=== PATIENT | female | born 1980 | race Caucasian/White ===

== ENCOUNTER 2016-07-30 17:40 | Emergency (ER) | payer SELFPAY ==
[2016-07-30 17:53] VITALS: BP 135/75; PULSE 60; TEMP 98.7; BMI 32.0
[2016-07-30] MEDS ORDERED: SODIUM CHLORIDE 1,000 ML IV STA (18:36)
--- NOTE | 2016-07-30 18:38 | PDOC ---
History of Present Illness - General Chief Complaint: Headache Stated Complaint: HEADACHE Time Seen by Provider: 07/30/16 17:56 History Source: [employer] Used (Tanisha [id number] ) Exam Limitations: Language Barrier - History of Present Illness Initial Comments: 07/30/16 18:35 35 yr female no medical history with c/o frequent headaches daily worse when "getting upset or yelling" for many months. Pt denies fever or chills, states today pt felt dizzy so she came to the ER. Pt denies chest pain or coughing no recent travel. Timing/Duration: reports: episodic Severity: Yes: moderate Associated Symptoms: reports: denies symptoms Past History - Past Medical History Allergies/Adverse Reactions: Allergies Allergy/AdvReac Type Severity Reaction Status Date / Time No Known Allergies Allergy Verified 07/30/16 17:50 Home Medications: Ambulatory Orders Amoxicillin/Potassium Clav [Augmentin 875-125 Tablet] 1 each PO BID #20 tablet 07/30/16 Naproxen [Naprosyn -] 500 mg PO BID PRN #28 tablet 07/30/16 Other medical history: DENIES. - Psycho/Social/Smoking Cessation Hx Suicidal Ideation: No Smoking History: Never smoked Neuro Specific PMHX - Complaint Specific PMHX Other Neuro History: headaches Review of Systems - Review of Systems Able to Perform ROS?: Yes Is the patient limited Citizen Of [place] proficient: Yes Constitutional: No: Symptoms Reported HEENTM: No: Symptoms Reported Respiratory: No: Symptoms reported Cardiac (ROS): No: Symptoms Reported ABD/GI: No: Symptoms Reported : No: Symptoms Reported Musculoskeletal: No: Symptoms Reported Integumentary: No: Symptoms Reported Neurological: Yes: See HPI *Physical Exam - Vital Signs Last Vital Signs Temp Pulse Resp BP Pulse Ox 98.7 F 60 19 135/75 98 07/30/16 17:50 07/30/16 17:50 07/30/16 17:50 07/30/16 17:50 07/30/16 17:50 - Physical Exam General Appearance: Yes: Nourished, Appropriately Dressed HEENT: positive: EOMI, IAN, Normal ENT Inspection, TMs Normal, Pharynx Normal Neck: positive: Supple. negative: Tender, Tender lateral, Tender midline Respiratory/Chest: positive: Lungs Clear, Normal Breath Sounds Cardiovascular: positive: Regular Rhythm, Regular Rate Gastrointestinal/Abdominal: positive: Normal Bowel Sounds, Soft Musculoskeletal: positive: Normal Inspection Extremity: positive: Normal Capillary Refill, Normal Inspection, Normal Range of Motion Integumentary: positive: Normal Color, Dry, Warm Neurologic: positive: Fully Oriented, Alert, Normal Mood/Affect, Normal Response , Motor Strength 5/5, Other (steady gait ) ED Treatment Course - LABORATORY CBC & Chemistry Diagram: 07/30/16 19:00 07/30/16 19:00 Medical Decision Making - Medical Decision Making 07/30/16 19:37 cc: headache pt has menses now headache comes and goes with when she gets mad or yells, pt states. denies head trauma no medical history 07/30/16 20:06 *DC/Admit/Observation/Transfer Diagnosis at time of Disposition: Headache Qualifiers: Headache type: new daily persistent Qualified Code(s): G44.52 - New daily persistent headache (NDPH) - Discharge Dispostion Disposition: HOME Condition at time of disposition: Good - Prescriptions Prescriptions: Amoxicillin/Potassium Clav [Augmentin 875-125 Tablet] 1 each PO BID #20 tablet Naproxen [Naprosyn -] 500 mg PO BID PRN #28 tablet PRN Reason: Headache - Referrals Referrals: Jaime Dave MD [Staff Physician] - Tejas Cuevas MD [Staff Physician] - - Patient Instructions Additional Instructions: you have sinusitus please take the antibiotics as prescribed take the naprosyn for headache as prescribed follow with the ENT doctor this week in 2-4 days please follow up with the neurologist call tomorrow to set up appointment for follow up if you continue to have headaches this week take naprosyn for headache as needed Return to ER for any worsening symptoms Usted tiene sinusitis por favor tome los antibiticos segn lo prescrito Michael el naprosyn para el dolor de davis segn lo prescrito Siga con el doctor ENT esta semana en 2-4 saul Por favor, siga con la llamada de neurlogo maana para establecer elli carito para el seguimiento si contina con mike de davis esta semana Michael naprosyn para el dolor de davis segn sea necesario Regreso a la roxana de emergencias por cualquier empeoramiento de los sntomas
[2016-07-30 18:42] LABS: URINE APPEARANCE CLEAR; URINE BILIRUBIN NEGATIVE (NEGATIVE); URINE COLOR LTYELLOW; URINE GLUCOSE (UA) NEGATIVE (NEGATIVE); URINE KETONE NEGATIVE (NEGATIVE); URINE LEUK ESTERASE NEGATIVE (NEGATIVE); URINE NITRITE NEGATIVE (NEGATIVE); URINE PROTEIN NEGATIVE (NEGATIVE); URINE UROBILINOGEN NEGATIVE E.U./dl (0.2-1.0)
[2016-07-30 18:49] LABS: URINE BLOOD 2+ (NEGATIVE)
[2016-07-30 18:53] LABS: URINE RBC 4 /hpf (0-3); URINE WBC 2 /hpf (3-5)
[2016-07-30 19:05] LABS: MCH 30.3 pg (25.7-33.7); MCHC 33.8 g/dl (32.0-36.0); MEAN CELL VOLUME 89.5 fl (80-96); MEAN PLT VOLUME 7.9 fl (7.5-11.1); PLATELET COUNT 282 K/MM3 (134-434); RDW 13.1 % (11.6-15.6); WHITE BLOOD COUNT 8.5 K/mm3 (4.0-10.0)
[2016-07-30] MEDS ORDERED: ACETAMINOPHEN 1000 MG/100 ML VIAL (NON FORMULARY) IVPB ONE (19:05)
[2016-07-30] MEDS ORDERED: ACETAMINOPHEN INJECTION 100 ML IVPB ONE (19:12)
[2016-07-30 19:38] LABS: ANION GAP 9 (8-16); BILIRUBIN,TOTAL 0.3 mg/dL (0.2-1.0); CALCIUM 8.8 mg/dL (8.5-10.1); CO2 27 mmol/L (21-32); CREATININE 0.7 mg/dL (0.55-1.02); GLUCOSE,RANDOM 107 mg/dL (74-106); SGOT/AST 28 U/L (15-37); SGPT/ALT 51 U/L (12-78); TOT PROT 7.8 g/dl (6.4-8.2)
[2016-07-30] MEDS ORDERED: MECLIZINE HCL 12.5 MG TABLET PO ONE (19:38)
[2016-07-30 19:39] LABS: ALK PHOS 105 U/L (45-117)
[2016-07-30] MEDS ORDERED: MECLIZINE HCL 12.5 MG TABLET ONE (19:48)
== END 2016-07-30 20:41 | disposition home or self-care (01) ==
LOC: JERFT 17:40
PROC: 3E0337Z Introduction of Electrolytic and Water Balance Substance into Peripheral Vein, Percutaneous Approach (ICD-10-PCS; principal; 2016-07-30)
PROC: 3E033NZ Introduction of Analgesics, Hypnotics, Sedatives into Peripheral Vein, Percutaneous Approach (ICD-10-PCS; 2016-07-30)
DX: G44.52 New daily persistent headache (NDPH) (principal)
CPT/HCPCS: 36415; 70450-TC; 80053; 81003; 81015; 84703; 85027; 85651; 86618; 99281-25

== ENCOUNTER 2016-09-05 13:57 | Emergency (ER) | payer SELFPAY ==
[2016-09-05 14:02] VITALS: BP 132/55; PULSE 57; TEMP 98.3; BMI 31.2
--- NOTE | 2016-09-05 15:34 | PDOC ---
History of Present Illness - General History Source: Patient Exam Limitations: No Limitations - History of Present Illness Travel History: No Initial Comments: 09/05/16 15:29 She came to emergency department for complaints of abdominal pain that started yesterday and progressively worsened today. Last menstrual period was July 19, and states 5 times with 4 live births. States had some minimal spotting today not bright red, and has not noted any tissue-like substance. Denies fever, nausea vomiting, no problems with urine or bowels. Has had 1 appointment but no ultrasound. 09/05/16 15:32 09/05/16 15:33 Quality: reports: mild Abdominal Pain Onset Location: reports: suprapubic, generalized abdomen Pain Radiation: reports: no radiation <Abigail Hayes - Last Filed: 09/05/16 20:12> <Liyah Campbell - Last Filed: 09/05/16 20:43> - General Chief Complaint: Vaginal Bleeding Stated Complaint: 8 WKS BLEEDING Time Seen by Provider: 09/05/16 15:19 Past History - Travel Traveled outside of the country in the last 30 days: No Close contact w/someone who was outside of country & ill: No - Past Medical History Other medical history: NONE - Psycho/Social/Smoking Cessation Hx Anxiety: No Suicidal Ideation: No Smoking History: Never smoked Substance Use Type: None <Abigail Hayes - Last Filed: 09/05/16 20:12> <Liyah Campbell - Last Filed: 09/05/16 20:43> - Past Medical History Allergies/Adverse Reactions: Allergies Allergy/AdvReac Type Severity Reaction Status Date / Time No Known Allergies Allergy Verified 09/05/16 14:02 Home Medications: Ambulatory Orders Amoxicillin/Potassium Clav [Augmentin 875-125 Tablet] 1 each PO BID #20 tablet 07/30/16 Naproxen [Naprosyn -] 500 mg PO BID PRN #28 tablet 07/30/16 Review of Systems - Review of Systems Able to Perform ROS?: Yes Is the patient limited [place] proficient: Yes Constitutional: Yes: Symptoms Reported, See HPI, Malaise HEENTM: Yes: See HPI. No: Symptoms Reported Respiratory: Yes: See HPI ABD/GI: Yes: Symptoms Reported, See HPI. No: Nausea, Rectal Bleeding, Vomiting : Yes: See HPI. No: Symptoms Reported Integumentary: Yes: Symptoms Reported All Other Systems: Reviewed and Negative <Abigail Hayes - Last Filed: 09/05/16 20:12> *Physical Exam - Vital Signs Last Vital Signs Temp Pulse Resp BP Pulse Ox 98.3 F 57 L 20 132/55 99 09/05/16 14:00 09/05/16 14:00 09/05/16 14:00 09/05/16 14:00 09/05/16 14:00 - Physical Exam General Appearance: Yes: Nourished, Appropriately Dressed, Apparent Distress, Mild Distress HEENT: positive: IAN, Normal ENT Inspection, TMs Normal, Pharynx Normal Neck: positive: Supple. negative: Tender Respiratory/Chest: positive: Lungs Clear, Normal Breath Sounds. negative: Chest Tender Cardiovascular: positive: Regular Rhythm, Regular Rate Gastrointestinal/Abdominal: positive: Normal Bowel Sounds, Tender (mild suprapubic tenderness), Soft Musculoskeletal: positive: Normal Inspection Extremity: positive: Normal Capillary Refill, Normal Inspection Integumentary: positive: Normal Color, Dry, Warm, Pale Neurologic: positive: ethical hacker II-XII NML intact, Fully Oriented, Alert, Normal Mood/ Affect, Normal Response, Motor Strength 5/5 <Abigail Hayes - Last Filed: 09/05/16 20:12> - Vital Signs Last Vital Signs Temp Pulse Resp BP Pulse Ox 98.3 F 57 L 20 132/55 99 09/05/16 14:00 09/05/16 14:00 09/05/16 14:00 09/05/16 14:00 09/05/16 14:00 <Liyah Campbell - Last Filed: 09/05/16 20:43> ED Treatment Course - LABORATORY CBC & Chemistry Diagram: 09/05/16 18:19 - RADIOLOGY Radiology Studies Ordered: Category Date Time Status <14WKS US [US] Stat Ultrasound 09/05/16 15:24 Ordered <Abigail Hayes - Last Filed: 09/05/16 20:12> - LABORATORY CBC & Chemistry Diagram: 09/05/16 18:19 - ADDITIONAL ORDERS Additional order review: Laboratory Results 09/05/16 09/05/16 15:36 15:36 Beta HCG, Quant 198.2 Urine Color Ltyellow Urine Appearance Clear Urine pH 6.0 Urine Protein Negative Urine Glucose (UA) Negative Urine Ketones Negative Urine Blood 3+ H Urine Nitrite Negative Urine Bilirubin Negative Urine Urobilinogen Negative Ur Leukocyte Esterase Trace H Urine RBC 2 Urine WBC 10 Ur Epithelial Cells Rare Urine Bacteria Rare 09/05/16 09/05/16 18:19 15:36 RBC 4.37 4.42 MCV 89.2 90.5 MCHC 33.7 33.2 RDW 13.0 13.1 MPV 7.9 8.2 Neutrophils % 60.5 62.1 Lymphocytes % 31.1 28.0 Monocytes % 6.4 7.8 Eosinophils % 1.2 1.7 Basophils % 0.8 0.4 <Liyah Campbell - Last Filed: 09/05/16 20:43> Progress Note - Progress Note Progress Note: Early with abdominal pain and spotting. We will obtain labs and ultrasound <Abigail Hayes - Last Filed: 09/05/16 20:12> Medical Decision Making - Medical Decision Making 09/05/16 19:12 turn from ultrasound, reveals no intrauterine gestational sac, and beta-hCG that is low less than 200. Patient understands need for return to emergency Department in 2 days for repeat blood work. His pending type and crossmatch to rule out Rh- problems. His mother is positive no further observation tonight needed. Case is turned over to Joey Lewis NP for remainder of evaluation and disposition. <Abigail Hayes - Last Filed: 09/05/16 20:12> *DC/Admit/Observation/Transfer - Discharge Dispostion Admit: No <Abigail Hayes - Last Filed: 09/05/16 20:12> - Discharge Dispostion Admit: No <Liyah Campbell - Last Filed: 09/05/16 20:43> Diagnosis at time of Disposition: Threatened in first trimester - Referrals Referrals: Rae Weaver MD [Staff Physician] - - Patient Instructions Printed Discharge Instructions: DI for Threatened Additional Instructions: Rest, drink lots of fluids: Teas, water, soups Samia iggy, carbonated beverages for the bubbles May try peppermint teas Continue [id number] medications for symptomatic relief Tylenol for fever and pain Return to this emergency Department in 2 days for repeat blood testing to check the beta hCG. Your initial reading was 198 Followup with private physician in one to 2 days as needed Return to emergency department for worsened symptoms, fevers, dehydration Print Language: SLOVAK - Post Discharge Activity Work/School Note: Back to Work
[2016-09-05 16:56] LABS: URINE APPEARANCE CLEAR; URINE BILIRUBIN NEGATIVE (NEGATIVE); URINE COLOR LTYELLOW; URINE GLUCOSE (UA) NEGATIVE (NEGATIVE); URINE KETONE NEGATIVE (NEGATIVE); URINE NITRITE NEGATIVE (NEGATIVE); URINE PROTEIN NEGATIVE (NEGATIVE); URINE UROBILINOGEN NEGATIVE E.U./dl (0.2-1.0)
[2016-09-05 17:01] LABS: BASOPHIL 0.4 % (0-2.0); EOSINOPHIL 1.7 % (0-4.5); MCH 30.1 pg (25.7-33.7); MCHC 33.2 g/dl (32.0-36.0); MEAN CELL VOLUME 90.5 fl (80-96); MEAN PLT VOLUME 8.2 fl (7.5-11.1); NEUTROPHILS 62.1 % (42.8-82.8); PLATELET COUNT 294 K/MM3 (134-434); RDW 13.1 % (11.6-15.6); WHITE BLOOD COUNT 8.5 K/mm3 (4.0-10.0)
[2016-09-05 17:06] LABS: URINE BLOOD 3+ (NEGATIVE); URINE LEUK ESTERASE TRACE (NEGATIVE)
[2016-09-05 17:14] LABS: URINE BACTERIA RARE /hpf (NONE SEEN); URINE RBC 2 /hpf (0-3); URINE WBC 10 /hpf (3-5)
[2016-09-05 18:33] LABS: BASOPHIL 0.8 % (0-2.0); EOSINOPHIL 1.2 % (0-4.5); MCHC 33.7 g/dl (32.0-36.0); MEAN CELL VOLUME 89.2 fl (80-96); MEAN PLT VOLUME 7.9 fl (7.5-11.1); NEUTROPHILS 60.5 % (42.8-82.8); PLATELET COUNT 283 K/MM3 (134-434); WHITE BLOOD COUNT 8.5 K/mm3 (4.0-10.0)
== END 2016-09-05 20:49 | disposition home or self-care (01) ==
LOC: JER 13:57
DX: O20.0 Threatened abortion (principal); Z3A.01 Less than 8 weeks gestation of pregnancy
CPT/HCPCS: 36415; 76801-TC; 81003; 81015; 84702; 85025; 86850; 86900; 86901; 99282-25

== ENCOUNTER 2018-03-24 12:59 | Emergency (ER) | payer OTHER ==
[2018-03-24 13:10] VITALS: BP 134/71; PULSE 69; TEMP 98; BMI 31.2
--- NOTE | 2018-03-24 13:52 | PDOC ---
History of Present Illness - General Chief Complaint: Vaginal Bleeding Stated Complaint: VAGINAL BLEEDING/12 WKS Time Seen by Provider: 03/24/18 13:50 - History of Present Illness Initial Comments: 37yo A0 currently 12 weeks complaining of vaginal bleeding that started last night. She states that she has seen her [employer] doctor during this but does not know who the doctor is. She has an ultrasound scheduled for April 04. Previous pregnancies resulted in uncomplicated courses, except for one premature delivery. Patient states she has not passed any clots or tissue. Endorsing some minor abdominal cramping. Denies nausea or vomiting. Last bowel movement was a normal formed brown stool yesterday. Denies any trauma or any urinary symptoms. No fever or chills. Past History - Past Medical History Allergies/Adverse Reactions: Allergies Allergy/AdvReac Type Severity Reaction Status Date / Time No Known Allergies Allergy Verified 03/26/18 13:38 Home Medications: Ambulatory Orders Amoxicillin/Potassium Clav [Augmentin 875-125 Tablet] 1 each PO BID #20 tablet 07/30/16 Naproxen [Naprosyn -] 500 mg PO BID PRN #28 tablet 07/30/16 COPD: No - Reproductive History (#): 5 Para: 4 Therapeutic (s) & number: No Spontaneous : 0 - Suicide/Smoking/Psychosocial Hx Smoking History: Never smoked Have you smoked in the past 12 months: No Information on smoking cessation initiated: No Hx Alcohol Use: No Drug/Substance Use Hx: No Substance Use Type: None Review of Systems - Review of Systems Comments:: Constitutional: no fever, no chills HEENT: no throat pain, no dysphagia Cardiovascular: no chest pain, no palpitations Respiratory: no cough, no shortness of breath Gastrointestinal: +abdominal pain, no nausea, no vomiting Genitourinary: +vaginal bleeding, no dysuria Musculoskeletal: no myalgia, no arthralgia Skin: no rash, no itching Neurologic: no headache, no dizziness *Physical Exam - Vital Signs Last Vital Signs Temp Pulse Resp BP Pulse Ox 98 F 69 18 134/71 97 03/24/18 13:07 03/24/18 13:07 03/24/18 13:07 03/24/18 13:07 03/24/18 13:07 - Physical Exam Comments: General: Awake, alert, and fully oriented, in no acute distress Head: No signs of trauma Eyes: EOMI, sclera anicteric ENT: Moist mucus membranes Neck: Normal ROM, supple Lungs: Lungs clear, Normal breath sounds Cardio: Regular rhythm, S1 and S2 present Abdomen: Soft, nontender. No guarding, no rebound, no masses Extremities: Normal range of motion, Distal pulses present SKIN: Warm, Dry, normal turgor Neurologic: Cranial nerves II through XII grossly intact. Normal speech Pelvic exam: External genitalia without erythema, exudate or discharge. Vaginal vault is with discharge. Cervix is of normal color without lesion. The os is open. Uterus is noted to be of appropriate size. No cervical motion tenderness is seen. No masses are palpated. The adnexa are without masses or tenderness. Moderate Sedation - Procedure Monitoring Vital Signs: Procedure Monitoring Vital Signs Temperature 98 F 03/24/18 13:07 Pulse Rate 69 03/24/18 13:07 Respiratory Rate 18 03/24/18 13:07 Blood Pressure 134/71 03/24/18 13:07 O2 Sat by Pulse Oximetry (%) 97 03/24/18 13:07 ED Treatment Course - LABORATORY CBC & Chemistry Diagram: 03/24/18 13:56 03/24/18 14:09 Medical Decision Making - Medical Decision Making 37yo A0 currently 12 weeks complaining of vaginal bleeding that started last night. -DDX includes but not limited to : missed, inevitable, incomplete; subchorionic hemorrhage -Labs: no leukoctyosis or anemia, UA negative for infection, unremarkable electrolyte panel -B-hcg is 5762 which is less than expected for stated gestational age (no baseline value) -Patient is Rh+ -TVUS: "Endometrial fluid and thickening without evidence of a viable intrauterine gestation. 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 Ultrasound imaging shows you have had a miscarriage. Follow-up with your manager project this week. Your workup is not complete until you do so. Your beta-HCG today was 5762.7 Return to the Emergency Department if you experience: -heavy bleeding (more than two pads per hour for two hours) -severe pain -lightheadedness -shortness of breath -high fever -any other concerning symptoms === Usted fue atendido en el [facility] por manchado vaginal. Las imgenes de ultrasonido muestran que pritchett tenido un aborto espontneo. Peter un seguimiento con vicente ob / gineclogo esta semana. Vicente preparacin no est completa hasta que lo peter. Vicente beta-HCG hoy fue 5762.7 Regrese al [facility] si experimenta: -sangrado abundante (ms de dos compresas por hora rosy dos horas) -dolor tremaine aturdimiento -cortitud de aliento -fiebre modesta - Cualquier otro sntoma relativo. - Post Discharge Activity
[2018-03-24 14:28] LABS: BASO % 0.3 % (0-2.0); EOS % 1.7 % (0-4.5); HEMATOCRIT 38.3 % (32.4-45.2); HEMOGLOBIN 13.8 GM/dL (10.7-15.3); INR 1.11 (0.83-1.09); LYMPH % 29.3 % (8-40); MCHC 36.1 g/dl (32.0-36.0); MEAN CELL VOLUME 88.6 fl (80-96); MEAN PLT VOLUME 8.1 fl (7.5-11.1); MONO % 7.2 % (3.8-10.2); NEUT % 61.5 % (42.8-82.8); PLATELET COUNT 271 K/MM3 (134-434); PROTHROMBIN TIME (PATIENT) 13.1 SEC (9.7-13.0); RBC 4.33 M/mm3 (3.60-5.2); WHITE BLOOD COUNT 8.8 K/mm3 (4.0-10.0)
[2018-03-24 14:31] LABS: ACTIVATED PTT 28.5 SECONDS (25.2-36.5)
[2018-03-24 14:36] LABS: ALK PHOS 85 U/L (45-117); ANION GAP 9 MMOL/L (8-16); BILIRUBIN,TOTAL 0.6 mg/dL (0.2-1); BLOOD UREA NITROGEN 10 mg/dL (7-18); CALCIUM 8.7 mg/dL (8.5-10.1); CHLORIDE 106 mmol/L (98-107); CO2 23 mmol/L (21-32); CREATININE 0.5 mg/dL (0.55-1.3); GLUCOSE,RANDOM 100 mg/dL (74-106); POTASSIUM 3.6 mmol/L (3.5-5.1); SGOT/AST 15 U/L (15-37); SGPT/ALT 23 U/L (13-61); SODIUM 139 mmol/L (136-145); TOT PROT 7.7 g/dl (6.4-8.2)
[2018-03-24 15:02] LABS: URINE APPEARANCE SLCLOUDY; URINE BILIRUBIN NEGATIVE (<2.0 mg/dL); URINE COLOR DKYELLOW; URINE GLUCOSE (UA) NEGATIVE (NEGATIVE); URINE KETONE NEGATIVE (NEGATIVE); URINE LEUK ESTERASE TRACE (NEGATIVE); URINE NITRITE NEGATIVE (NEGATIVE); URINE PROTEIN NEGATIVE (NEGATIVE)
[2018-03-24 15:11] LABS: EPI CELLS FEW /HPF (FEW); URINE MUCUS MODERATE
--- NOTE | 2018-03-24 15:29 | PDOC ---
Attending Attestation - Medical Decision Making 03/24/18 15:55 Documentation prepared by Aries Magana, acting as emergency medical service manager for Nate Galeas MD. <Aries Magana - Last Filed: 03/24/18 15:55> - Resident Resident Name: Janelle Trotter - ED Attending Attestation I have performed the following: I have examined & evaluated the patient, The case was reviewed & discussed with the resident, I agree w/resident's findings & plan, Exceptions are as noted - HPI HPI: 03/24/18 15:23 The patient is a 37 year old female , @ 12 weeks by LMP, with no significant PMH, who presents to the emergency department with 1 day of vaginal bleeding. The patient states she experienced vaginal spotting beginning last night. Denies any clots, tissue or discharge. The patient states all previous pregnancies have resulted in live births with 1 premature delivery. The patient denies any history of miscarriages. She denies any abdominal pain or cramping. Denies any pelvic pain. The patient states she follows with [facility] PURIFICATION WORKER at [facility] and has an ultrasound scheduled for the new year. The patient states her LMP was on 12/27/17. The patient denies chest pain, shortness of breath, headache and dizziness. Denies fever, chills, nausea, vomit, diarrhea and constipation. Denies dysuria, frequency, urgency and hematuria. Allergies: NKA - Physicial Exam PE: 03/24/18 15:26 "GENERAL: Awake, alert, and fully oriented, in no acute distress. HEAD: No signs of trauma EYES: PERRLA, EOMI, sclera anicteric, conjunctiva clear ENT: Auricles normal inspection, hearing grossly normal, nares patent, oropharynx clear without exudates. Moist mucosa NECK: Nontender, no stepoffs, Normal ROM, supple, no lymphadenopathy, JVD, or masses LUNGS: Breath sounds equal, clear to auscultation bilaterally. No wheezes, and no crackles HEART: Regular rate and rhythm, normal S1 and S2, no murmurs, rubs or gallops ABDOMEN: Soft, nontender, normoactive bowel sounds. No guarding, no rebound. No masses EXTREMITIES: Normal range of motion, no edema. No clubbing or cyanosis. No cords, erythema, or tenderness NEUROLOGICAL: Cranial nerves II through XII intact. 5/5 strength and sensation in all extremities, Normal speech, normal gait, normal cerebellar function SKIN: Warm, Dry, normal turgor, no rashes or lesions noted. : + blood in vault, os slightly open, no clots, no CMT - Medical Decision Making 03/24/18 15:31 37 F with vaginal bleeding. Likely spontaneous Ab. - Labs, HCG, T&S - TVUS 03/24/18 15:50 Labs wnl TVUS shows likely missed Ab HCG still pending 03/24/18 16:06 HCG 5000, likely spontaneous Pt informed of results, will f/u with OB Pt is well appearing, with normal vitals. Clinically stable for DC at this time. I discussed the physical exam findings, ancillary test results and final diagnoses with the patient. I answered all of the patient's questions. The patient was satisfied with the care received and felt comfortable with the discharge plan and treatment plan. The patient agrees to follow up with the primary care physician within 24-72 hours. <Nate Galeas - Last Filed: 03/24/18 16:06>
== END 2018-03-24 16:36 | disposition home or self-care (01) ==
LOC: JER 12:59
DX: O26.891 Other specified pregnancy related conditions, first trimester (principal); O02.1 Missed abortion; Z3A.12 12 weeks gestation of pregnancy
CPT/HCPCS: 36415; 76817-TC; 80053; 81003; 81015; 84702; 85025; 85610; 85730; 86850; 86900; 86901; 87086; 99282-25

== ENCOUNTER 2018-03-26 13:34 | Emergency (ER) | payer OTHER ==
[2018-03-26 13:38] VITALS: BP 122/69; PULSE 75; TEMP 97.6; BMI 33.2
--- NOTE | 2018-03-26 16:27 | PDOC ---
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 noon today. Pt states she had heavy bleeding and passed clots, then the bleeding slowed but became heavy again on arrival in the ED. The pain is present in both lower quadrants but worse on the left side with radiation to her lower back. Pt was evaluated in this department two days ago on 03/24/2018 for similar symptoms and diagnosed with a likely missed by ultrasound. Gestational age estimated at 12 weeks. Pt has not followed up with OBGYN at [facility]. Denies lightheadedness, chest pain, SOB, or syncope. Pt is Icelandic speaking only. Telephone chemical weigher used for interview. OB Hx: A1 Medical Hx: - Pt denies past medical history. Denies prescription medications. Surgical Hx: - x2 Past History - Past Medical History Allergies/Adverse Reactions: Allergies Allergy/AdvReac Type Severity Reaction Status Date / Time No Known Allergies Allergy Verified 03/26/18 13:38 Home Medications: Ambulatory Orders Amoxicillin/Potassium Clav [Augmentin 875-125 Tablet] 1 each PO BID #20 tablet 07/30/16 Naproxen [Naprosyn -] 500 mg PO BID PRN #28 tablet 07/30/16 COPD: No - Reproductive History (#): 5 Para: 4 Therapeutic (s) & number: No Spontaneous : 0 - Suicide/Smoking/Psychosocial Hx Smoking History: Never smoked Have you smoked in the past 12 months: No Information on smoking cessation initiated: No Hx Alcohol Use: No Drug/Substance Use Hx: No Substance Use Type: None Review of Systems - Review of Systems Able to Perform ROS?: Yes Comments:: In addition to that documented in the HPI above, the additional ROS was obtained : Constitutional: Denies fevers or chills Eyes: Denies vision changes ENMT: Denies sore throat CV: Denies chest pain Resp: Denies SOB GI: Denies vomiting or diarrhea : Per HPI MSK: Denies recent trauma Skin: Denies new rashes Neuro: Denies new numbness or tingling or weakness Endocrine: Denies polyuria Heme: Denies h/o of bleeding problems *Physical Exam - Vital Signs Last Vital Signs Temp Pulse Resp BP Pulse Ox 97.6 F 75 16 122/69 100 03/26/18 13:36 03/26/18 13:36 03/26/18 13:36 03/26/18 13:36 03/26/18 13:36 - Physical Exam Comments: Constitutional: Well-developed, well-nourished female in no acute distress or obvious discomfort. Found sitting upright on edge of hospital BENZENE WASHER table. Alert and oriented x4. Answered all questions appropriately and completely. Speech was non-labored, non-pressured. Head: Normocephalic. No obvious external signs of trauma. Eyes: PERRL. Sclerae white. Conjunctiva moist and pink, not pale or injected. EARS: Hearing grossly intact. NOSE: No nasal discharge. Neck: Supple, trachea is midline. Cardiovascular: Regular rate and regular rhythm. No murmur, rubs, clicks, or gallops. Peripheral pulses: Radial pulses full. Respiratory: Breathing unlabored. Equal chest rise and fall. Clear to auscultation bilaterally. No stridor, no wheezing, no rhonchi. Gastrointestinal: abdomen is tender in suprapubic region without rebound or guarding. Globally, abdomen is soft and non-distended. No pulsatile masses. No overlying skin lesions or obvious signs of trauma. Neuro: Alert and oriented. Moving all four extremities spontaneously. Skin: Warm, dry, and intact. No bruising, rashes, or other lesions. : No R or L CVA tenderness. Psych: Affect: appropriate. Mood: normal. Female Pelvic: External genitalia unremarkable. Speculum exam revealed gross blood within the vaginal vault. Vaginal wall mucosa is unremarkable. Cervix visualized and open with blood in OS. Bimanual exam without cervical motion tenderness or any masses appreciated. sustainable agriculture faculty chaperoned exam. Moderate Sedation - Procedure Monitoring Vital Signs: Procedure Monitoring Vital Signs Temperature 97.6 F 03/26/18 13:36 Pulse Rate 75 03/26/18 13:36 Respiratory Rate 16 03/26/18 13:36 Blood Pressure 122/69 03/26/18 13:36 O2 Sat by Pulse Oximetry (%) 100 03/26/18 13:36 ED Treatment Course - LABORATORY CBC & Chemistry Diagram: 03/26/18 16:37 03/26/18 16:37 - RADIOLOGY Radiology Studies Ordered: Category Date Time Status TRANSVAGINAL US PREG [US] Stat Ultrasound 03/26/18 16:25 Ordered Medical Decision Making - Medical Decision Making *Reviewed vital signs, nursing notes, and prior visit documentation (if available). 37 y/o female presenting with vaginal bleeding, passing of clots, and intermittent lower abdominal pain with radiation to back. 12 weeks . Diagnosed with missed two days ago. Suspect symptoms are completion of the . Will obtain CBC to evaluate for anemia, though low suspicion based on physical exam. Will obtain U/S to evaluate for retained products of conception. Will obtain beta-quant to trend from previous visit. CBC unremarkable for anemia. U/S revealed possible anembryonic gestation versus blighted OVM. Beta-Qant has downtrended from two days ago. Continue to suspect symptoms are completion of the spontaneous . Cannot rule out ectopic , however pt is obviously reliable to return to the department with worsening symptoms. Will have pt follow up with outpatient OB or return to the ED within next two days for close follow up. Discussed imaging and laboratory results with pt. Answered all questions. Provided return precautions. Pt expressed verbal understanding and agreement with plan to discharge home with outpatient follow up. Icelandic speaking member of staff provided interpretation. *DC/Admit/Observation/Transfer Diagnosis at time of Disposition: Spontaneous - Discharge Dispostion Disposition: HOME Condition at time of disposition: Stable Decision to Admit order: No - Referrals - Patient Instructions Printed Discharge Instructions: DI for Miscarriage Additional Instructions: You were seen today in the emergency department for vaginal bleeding and lower abdominal pain. Your blood work did not show signs of anemia. The ultrasound showed you still have some parts of the in your uterus. These should pass by themselves within the next day. You need to follow up with your OBGYN doctor or come back to the emergency department within the next two days to make sure you are healing. You can take over the counter Tylenol and Advil as needed for pain. Take as directed on the package insert. Do not take more than the recommended dose. Go to the nearest emergency department if your condition worsens or you feel like you need additional emergency evaluation. Your Beta HCG went from 5762.3 on 03/24/2018 to 3846.3 today (03/26/2018). Se lo atendi hoy en el servicio de urgencias por sangrado vaginal y dolor abdominal inferior. Vicente anlisis de eros no mostr signos de anemia. La ecografa mostr que todava tiene algunas partes del embarazo en vicente tero. Estos deben pasar por s mismos en el da siguiente. Debe hacer un seguimiento con vicente mdico obstetra o volver al departamento de emergencias dentro de los prximos dos saul para asegurarse de que se est recuperando. Puede michael el mostrador Tylenol y Advil segn sea necesario para el dolor. Michael brigette se indica en el prospecto. No consuma mas de la dosis recomendada. Dirjase al departamento de emergencias ms cercano si vicente condicin empeora o si gal que necesita elli evaluacin de emergencia adicional. Vicente Beta HCG pas de 5762.3 el 03/24/2018 a 3846.3 hoy (03/26/2018). Print Language: DJIBOUTIAN - Post Discharge Activity
[2018-03-26] MEDS ORDERED: ACETAMINOPHEN 500 MG TABLET (FP) PO ONE (16:29)
[2018-03-26] MEDS ORDERED: ACETAMINOPHEN 325 MG TABLET (FP) ONE (16:30)
[2018-03-26 16:50] LABS: BASO % 0.6 % (0-2.0); EOS % 0.8 % (0-4.5); HEMATOCRIT 34.2 % (32.4-45.2); HEMOGLOBIN 12.6 GM/dL (10.7-15.3); LYMPH % 27.9 % (8-40); MCH 32.5 pg (25.7-33.7); MCHC 36.8 g/dl (32.0-36.0); MEAN CELL VOLUME 88.3 fl (80-96); MEAN PLT VOLUME 7.9 fl (7.5-11.1); MONO % 6.1 % (3.8-10.2); NEUT % 64.6 % (42.8-82.8); PLATELET COUNT 268 K/MM3 (134-434); RBC 3.87 M/mm3 (3.60-5.2); RDW 12.9 % (11.6-15.6); WHITE BLOOD COUNT 8.4 K/mm3 (4.0-10.0)
[2018-03-26 17:48] LABS: ALBUMIN 3.8 g/dl (3.4-5.0); ALK PHOS 80 U/L (45-117); ANION GAP 8 MMOL/L (8-16); BILIRUBIN,TOTAL 0.6 mg/dL (0.2-1); BLOOD UREA NITROGEN 8 mg/dL (7-18); CALCIUM 8.3 mg/dL (8.5-10.1); CHLORIDE 107 mmol/L (98-107); CO2 22 mmol/L (21-32); CREATININE 0.5 mg/dL (0.55-1.3); GLUCOSE,RANDOM 97 mg/dL (74-106); POTASSIUM 3.4 mmol/L (3.5-5.1); SGOT/AST 15 U/L (15-37); SGPT/ALT 21 U/L (13-61); SODIUM 137 mmol/L (136-145); TOT PROT 7.2 g/dl (6.4-8.2)
--- NOTE | 2018-03-26 18:42 | PDOC ---
Attending Attestation - Resident Resident Name: RomanoRas - ED Attending Attestation I have performed the following: I have examined & evaluated the patient, The case was reviewed & discussed with the resident, I agree w/resident's findings & plan, Exceptions are as noted - HPI HPI: 03/26/18 18:38 37 F , @ 12 weeks by LMP, with no significant PMH, presenting to ED for f/u HCG and US. Pt initially presented with vaginal bleeding 2 days ago. had US that showed no IUP. Pt endorses continued spotting without any significant pain. - Physicial Exam PE: 03/26/18 18:39 "GENERAL: Awake, alert, and fully oriented, in no acute distress. HEAD: No signs of trauma EYES: PERRLA, EOMI, sclera anicteric, conjunctiva clear ENT: Auricles normal inspection, hearing grossly normal, nares patent, oropharynx clear without exudates. Moist mucosa NECK: Nontender, no stepoffs, Normal ROM, supple, no lymphadenopathy, JVD, or masses LUNGS: Breath sounds equal, clear to auscultation bilaterally. No wheezes, and no crackles HEART: Regular rate and rhythm, normal S1 and S2, no murmurs, rubs or gallops ABDOMEN: Soft, nontender, normoactive bowel sounds. No guarding, no rebound. No masses EXTREMITIES: Normal range of motion, no edema. No clubbing or cyanosis. No cords, erythema, or tenderness NEUROLOGICAL: Cranial nerves II through XII intact. 5/5 strength and sensation in all extremities, Normal speech, normal gait, normal cerebellar function SKIN: Warm, Dry, normal turgor, no rashes or lesions noted. - Medical Decision Making 03/26/18 18:40 37 F with vaginal bleeding while . Pt with US that showed now IUP 2 days ago, now here for repeat. Abdominal exam benign. Pt well appearing, HD stable, with no acute complaints today. No abdominal pain to suggest ectopic. - Labs - TVUS 03/26/18 18:41 TVUS shows gestational sac without yolk sac or pole HCG downtrending, likely spontaneous Ab Pt informed of results, will f/u with OB Pt is well appearing, with normal vitals. Clinically stable for DC at this time. I discussed the physical exam findings, ancillary test results and final diagnoses with the patient. I answered all of the patient's questions. The patient was satisfied with the care received and felt comfortable with the discharge plan and treatment plan. The patient agrees to follow up with the primary care physician within 24-72 hours.
== END 2018-03-26 18:30 | disposition home or self-care (01) ==
LOC: JER 13:34
DX: O26.891 Other specified pregnancy related conditions, first trimester (principal); O03.4 Incomplete spontaneous abortion without complication; Z3A.12 12 weeks gestation of pregnancy
CPT/HCPCS: 76817-TC; 80053; 84702; 85025; 99281-25

== ENCOUNTER 2019-01-15 09:26 | Emergency (ER) | payer OTHER ==
[2019-01-15 09:33] VITALS: BMI 40.4
--- NOTE | 2019-01-15 10:04 | PDOC ---
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 Patient report not using any pad as bleeding was not much. Patient was seen by her OB yesterday for routine visit and report all exam and labs was normal. Denies vaginal bleeding now. Denies N/V , abd pains, fever, chills, JARAMILLO, CP,SOB, palpiations. Denies any other symptoms Timing/Duration: reports: intermittent Past History - Past Medical History Allergies/Adverse Reactions: Allergies Allergy/AdvReac Type Severity Reaction Status Date / Time No Known Allergies Allergy Verified 03/26/18 13:38 Home Medications: Ambulatory Orders Amoxicillin/Potassium Clav [Augmentin 875-125 Tablet] 1 each PO BID #20 tablet 07/30/16 Naproxen [Naprosyn -] 500 mg PO BID PRN #28 tablet 07/30/16 Nitrofurantoin Monohyd/M-Cryst [Macrobid -] 100 mg PO BID #14 capsule 01/15/19 COPD: No - Reproductive History (#): 5 Para: 4 Therapeutic (s) & number: No Spontaneous : 0 - Immunization History Immunization Up to Date: No - Psycho Social/Smoking Cessation Hx Smoking History: Never smoked Have you smoked in the past 12 months: No Information on smoking cessation initiated: No Hx Alcohol Use: No Drug/Substance Use Hx: No Substance Use Type: None Review of Systems - Review of Systems Able to Perform ROS?: Yes Is the patient limited Malagasy proficient: No Constitutional: No: Fever, Malaise, Weakness HEENTM: No: Symptoms Reported Cardiac (ROS): No: Symptoms Reported, See HPI, Chest Pain, Edema, Irregular Heart Rate, Lightheadedness, Palpitations, Syncope, Chest Tightness, Other ABD/GI: No: Symptoms Reported, Nausea, Vomiting, Abdominal cramping : Yes: Symptoms Reported, Other (vaginal spotting). No: Burning, Dysuria, Discharge, Frequency, Hematuria, Urgency Musculoskeletal: No: Symptoms Reported Integumentary: No: Symptoms Reported All Other Systems: Reviewed and Negative *Physical Exam - Vital Signs Last Vital Signs Temp Pulse Resp BP Pulse Ox 98.9 F 73 18 106/58 L 99 01/15/19 09:30 01/15/19 09:30 01/15/19 09:30 01/15/19 09:30 01/15/19 09:30 - Physical Exam General Appearance: Yes: Nourished, Appropriately Dressed. No: Apparent Distress HEENT: positive: Normal ENT Inspection Neck: positive: Supple Respiratory/Chest: positive: Lungs Clear, Normal Breath Sounds. negative: Chest Tender, Respiratory Distress, Accessory Muscle Use Cardiovascular: positive: Regular Rhythm, Regular Rate. negative: Murmur Female Pelvic Exam: positive: normal external exam, cervical os closed. negative: CMT, adnexal tenderness, vaginal bleeding (no blood in vaginal vault) Gastrointestinal/Abdominal: positive: Normal Bowel Sounds, Soft. negative: Tender Musculoskeletal: positive: Normal Inspection. negative: CVA Tenderness Extremity: positive: Normal Capillary Refill, Normal Inspection, Normal Range of Motion Integumentary: positive: Normal Color Neurologic: positive: Fully Oriented, Alert, Normal Mood/Affect, Normal Response ED Treatment Course - LABORATORY CBC & Chemistry Diagram: 01/15/19 10:35 Medical Decision Making - Medical Decision Making 01/15/19 11:14 Patient LMP 6/8 present with complains of vaginal spotting since this AM on tissue after using the bathroom. Patient report not using any pad as bleeding was not much. Patient was seen by her OB yesterday for routine visit and report all exam and labs was normal. Denies vaginal bleeding now. Denies N/V , abd pains, fever, chills, JARAMILLO, CP,SOB, palpiations. Denies any other symptoms Clinical exam unremarkable with no blood in vaginal vault, no abd tenderness and cervical os is closed. Patient bleeding likely post exam bleeding from her OB visit yesterday. CBC and beta hcg labs ordered. Patient RH from previous visit this year is B+. transvaginal U/S ordered to evaluate 01/15/19 12:43 CBC shows a elevated white count of 13. UA shows leukocytosis. Patient symptoms likely cystitis. Pelvic ultrasound shows oligo with partial placenta previa. Called me to patient clinic where she has OB care which providers report clinic as a primary care clinic will start visit and transfer patient out at a later stage. Provider report patient was referred to perinatology in [facility] which patient was supposed to follow-up as patient complained of vaginal spotting when seen in the clinic yesterday. Patient report she was told by the clinic of oligo and that was why she was referred to [facility]. Patient was to establish care with a OB closer and referral given for OB for immediate f/u. Rx for Macrobid BID X 7 days sent for UTI Discharge - Discharge Information Problems reviewed: Yes Clinical Impression/Diagnosis: UTI (urinary tract infection) in in second trimester, Oligohydramnios in marc in second trimester Condition: Stable - Admission No - Additional Discharge Information Prescriptions: Nitrofurantoin Monohyd/M-Cryst [Macrobid -] 100 mg PO BID #14 capsule - Follow up/Referral Referrals: Eze Tse MD [Staff Physician] - - Patient Discharge Instructions Patient Printed Discharge Instructions: DI for Urinary Tract Infection (UTI), DI for Oligohydramnios, Oligohydramnios Additional Instructions: Your urine shows bacteria consistent with UTI. Abdominal ultrasound shows live with a small amount of fluid around the baby and partial placenta previa. This needs to be followed up by MOTOR BUILDER WINDER for low fluid around the baby as soon as possible. Follow-up with OB as discussed Stewart orina muestra bacterias consistentes con ITU. La ecografa abdominal muestra un embarazo en vivo con elli pequea cantidad de lquido alrededor del beb y placenta previa parcial. [place] debe ser seguido por un obstetra / gineclogo para detectar niveles bajos de lquido alrededor del beb lo antes posible. Seguimiento con OB brigette se discuti Print Language: LITHUANIAN - Post Discharge Activity
[2019-01-15 11:23] LABS: BASO % 0.3 % (0-2.0); EOS % 0.5 % (0-4.5); HEMATOCRIT 34.9 % (32.4-45.2); HEMOGLOBIN 12.1 GM/dL (10.7-15.3); LYMPH % 12.9 % (8-40); MCH 31.9 pg (25.7-33.7); MCHC 34.6 g/dl (32.0-36.0); MEAN CELL VOLUME 92.2 fl (80-96); MEAN PLT VOLUME 8.7 fl (7.5-11.1); MONO % 5.3 % (3.8-10.2); PLATELET COUNT 245 K/MM3 (134-434); RBC 3.79 M/mm3 (3.60-5.2); RDW 13.4 % (11.6-15.6); WHITE BLOOD COUNT 13.2 K/mm3 (4.0-10.0)
[2019-01-15 11:34] LABS: EPI CELLS 9.2 /HPF (0-5/HPF); HYALINE CASTS 11 /lpf (0-8); URINE APPEARANCE CLOUDY; URINE BACTERIA 429.7 /hpf (NEGATIVE); URINE BILIRUBIN NEGATIVE (NEGATIVE); URINE COLOR DK YELLOW; URINE GLUCOSE (UA) NEGATIVE (NEGATIVE); URINE KETONE TRACE (NEGATIVE); URINE LEUK ESTERASE 2+ (NEGATIVE); URINE NITRITE NEGATIVE (NEGATIVE); URINE PROTEIN 1+ (NEGATIVE); URINE RBC 82 /hpf (0-4); URINE WBC 281 /hpf (0-5)
--- NOTE | 2019-01-15 12:08 | PDOC ---
*Physical Exam - Vital Signs Last Vital Signs Temp Pulse Resp BP Pulse Ox 98.9 F 73 18 106/58 L 99 01/15/19 09:30 01/15/19 09:30 01/15/19 09:30 01/15/19 09:30 01/15/19 09:30 ED Treatment Course - LABORATORY CBC & Chemistry Diagram: 01/15/19 10:35 - ADDITIONAL ORDERS Additional order review: Laboratory Results 01/15/19 01/15/19 10:35 10:35 Beta HCG, Quant 6729.1 Urine Color Dk yellow Urine Appearance Cloudy Urine pH 6.0 Ur Specific [place] 1.027 Urine Protein 1+ H Urine Glucose (UA) Negative Urine Ketones Trace H Urine Blood 3+ H Urine Nitrite Negative Urine Bilirubin Negative Urine Urobilinogen 1.0 Ur Leukocyte Esterase 2+ H Urine WBC (Auto) 281 Urine RBC (Auto) 82 Urine Casts (Auto) 11 U Epithel Cells (Auto) 9.2 Urine Bacteria (Auto) 429.7 01/15/19 10:35 RBC 3.79 MCV 92.2 MCHC 34.6 RDW 13.4 MPV 8.7 D Neutrophils % 81.0 D Lymphocytes % 12.9 D Monocytes % 5.3 Eosinophils % 0.5 Basophils % 0.3 Medical Decision Making - Medical Decision Making 01/15/19 12:06 Patient seen and evaluated with the nurse practitioner. I agree with the overall evaluation, assessment, and management with the following summary of visit: 38-year-old female at about 19 weeks gestation by dates, status post AGRICULTURAL EQUIPMENT DESIGN ENGINEER evaluation yesterday status post ANIMAL CARE TAKER evaluation yesterday without issue presents now with scant spotting after urinating. No pain or discharge, no cramping. No fevers or chills. Vital signs stable Well-appearing, exam as noted 38-year-old female second trimester uncomplicated to date now with scant spotting, painless and without cramping and hemodynamically stable. UA shows evidence of UTI with elevated white blood cells CBC is normal Ultrasound concerning for low amniotic fluid and partial versus complete placenta previa. Will discuss with OB regarding disposition. Discharge - Discharge Information Condition: Stable - Follow up/Referral Referrals: Ruba Garcia MD [Primary Care Provider] - - Patient Discharge Instructions - Post Discharge Activity
[2019-01-15 13:14] VITALS: BP 128/71; PULSE 71; TEMP 98.1
[2019-01-15 16:04] LABS: URINE CRYSTALS FEW /hpf
== END 2019-01-15 13:14 | disposition home or self-care (01) ==
LOC: JER 09:26
DX: O41.02X0 Oligohydramnios, second trimester, not applicable or unspecified (principal); Z3A.19 19 weeks gestation of pregnancy; N39.0 Urinary tract infection, site not specified
CPT/HCPCS: 36415; 76815; 81003; 84702; 85025; 87086; 99283-25

== ENCOUNTER 2021-12-21 22:50 | Emergency (ER) | payer OTHER ==
[2021-12-21 22:54] VITALS: BP 118/69; PULSE 63; RESP 18; TEMP 97.8; BMI 31.2
[2021-12-22] MEDS ORDERED: ACETAMINOPHEN 325 MG TABLET (FP) PO ONE (00:22)
[2021-12-22] MEDS ORDERED: ACETAMINOPHEN 325 MG TABLET (FP) ONE (00:40)
[2021-12-22 00:49] LABS: BASO % 0.5 % (0-2.0); HEMATOCRIT 36.7 % (32.4-45.2); HEMOGLOBIN 12.7 GM/dL (10.7-15.3); LYMPH % 32.1 % (8-40); MCH 30.6 pg (25.7-33.7); MCHC 34.6 g/dl (32.0-36.0); MEAN CELL VOLUME 88.6 fl (80-96); MEAN PLT VOLUME 7.2 fl (7.5-11.1); MONO % 8.4 % (3.8-10.2); PLATELET COUNT 272 10^3/uL (134-434); RBC 4.14 M/mm3 (3.60-5.2); RDW 12.8 % (11.6-15.6); WHITE BLOOD COUNT 8.4 K/mm3 (4.0-10.0)
[2021-12-22 00:53] LABS: EPI CELLS 17 /uL (0-25.1); HYALINE CASTS 0 /uL (0-3.1); URINE APPEARANCE CLEAR; URINE BACTERIA 340 /uL (0-1359); URINE BILIRUBIN NEGATIVE (NEGATIVE); URINE COLOR YELLOW; URINE GLUCOSE (UA) NEGATIVE (NEGATIVE); URINE KETONE NEGATIVE (NEGATIVE); URINE LEUK ESTERASE TRACE (NEGATIVE); URINE NITRITE NEGATIVE (NEGATIVE); URINE PROTEIN NEGATIVE (NEGATIVE); URINE RBC 75 /uL (0-23.9); URINE WBC 8 /uL (0-25.8)
[2021-12-22 01:15] LABS: BLOOD UREA NITROGEN 15.3 mg/dL (7-18)
[2021-12-22 01:16] LABS: ALBUMIN 3.7 g/dl (3.4-5.0)
[2021-12-22 01:19] LABS: CREATININE 0.7 mg/dL (0.55-1.3)
[2021-12-22 01:20] LABS: BILIRUBIN,TOTAL 0.3 mg/dL (0.2-1); TOT PROT 7.5 g/dl (6.4-8.2)
== END 2021-12-22 02:22 | disposition home or self-care (01) ==
LOC: JER 22:50
DX: R42 Dizziness and giddiness (principal)
CPT/HCPCS: 36415; 80053; 81003; 84443; 84703; 85025; 87086; 99283-25